=== PATIENT | male | born 1995 | race Caucasian/White ===

== ENCOUNTER 2020-09-14 12:23 | Emergency (ER) | payer BC ==
[~2020-09-14] VITALS: Ht 182.9 cm; Wt 90.7 kg
[2020-09-14] MEDS ORDERED: LIDOCAINE HCL 1% 20 ML VIAL TP ONE (12:30)
[2020-09-14] MEDS ORDERED: IBUP-1955 PO (13:06)
--- NOTE | 2020-09-14 13:15 | NUR ---
Patient discharged to home in stable condition with brik steady gait. Written and verbal after care instructions given to patient and significant other. Patient verbalized understanding & compliance of instructions. Stressed follow up with primary doctor and hand surgeon or return to ER for worsening s/s.
== END 2020-09-14 13:17 | disposition home or self-care (01) ==
LOC: ER 12:23
DX: S61.210A Laceration without foreign body of right index finger without damage to nail, initial encounter (principal); W26.8XXA Contact with other sharp object(s), not elsewhere classified, initial encounter; Y93.89 Activity, other specified; Y92.89 Other specified places as the place of occurrence of the external cause
CPT/HCPCS: 12001; 73120; 99283; J3490; A4217; A4663